=== PATIENT | male | born 1965 | race Caucasian/White ===

== ENCOUNTER → 2019-02-07 | Day surgery (SDC) | payer BC ==
[~2019-02-07] MED LIST: BONE PO; BROMELAIN PO; FENTANYL CITRATE/PF 100MCG/2 ML INJ ONE; FOLATE PO; FOLIC ACID PO; HYOSCYAMINE 0.125 MG TAB ONE; JOINT FORMULA PO; L-GLUTAMINE25 G1 PO; MAGNESIUM PO; MELATONIN PO; MIDAZOLAM HCL 2 MG/2 ML VIAL ONE; MULTIVITAMINS1 EACH PO; N ACETYL CYSTEINE PO; NIACIN PO; NIACINAMIDE PO; OMEGA 3 FISH O1 EACH PO; PROBIOTICS PO; PROPOFOL IV EMULSION 10 MG/ML 50 ML VIAL ONE; QUERCETIN PO; ROYAL JELLY PO; TRACE MINERALS PO; TURMERIC1 GM PO; VITAMIN B COMP1 EACH PO; VITAMIN C PO; VITAMIN D PO
[2019-02-07 14:45] VITALS: BP 85/63
--- NOTE | 2019-02-07 16:27 | Operative Report ---
DATE OF PROCEDURE: 02/07/2019 SURGEON: Eliceo Zhou MD PROCEDURE: EGD with biopsies. INDICATION FOR COLONOSCOPY: Surveillance colonoscopy, personal history of colon polyps. MEDICATIONS: The patient was done under MAC, please see anesthesiologist's note. PROCEDURE IN DETAIL: With the patient in left lateral decubitus position, a flexible fiberoptic Olympus colonoscope was inserted into the rectum with ease and advanced all the way to the cecum. Mucosa overlying the cecum appeared to be within normal limits. The ileocecal valve was intubated and the scope was advanced into the terminal ileum. Biopsies were obtained. The scope was then withdrawn back into the colon. It was then withdrawn slowly and mucosa overlying the ascending and the transverse appeared to be within normal limits. There was some patchy mild inflammatory changes noted in the left colon as well as the rectum and random biopsies were obtained. The scope was then retroflexed into the distal rectum and moderate-sized internal hemorrhoids were noted, none of which was actively bleeding. The scope was then straightened out, it was subsequently withdrawn, and the patient tolerated the procedure well. IMPRESSION: 1. Mild patchy left-sided colitis. 2. Proctitis, mild. 3. Internal hemorrhoids, none actively bleeding. PLAN: Follow up histology. Initiate VSL#3 one p.o. daily. The patient might benefit from a followup colonoscopy in 5 years. Eliceo Zhou MD [facility] /[id number] cc: Dr. Sacha Luna
== END | disposition home or self-care (01) ==
LOC: OR 10:15
PROVIDERS: ATTEND Internal Medicine Gastroenterology
DX: Z12.11 Encounter for screening for malignant neoplasm of colon (principal); Z86.010 Personal history of colon polyps; K51.50 Left sided colitis without complications; K62.89 Other specified diseases of anus and rectum; K64.8 Other hemorrhoids; Z01.810 Encounter for preprocedural cardiovascular examination
CPT/HCPCS: 43239; 93005; J2250; J2704; J3010; 45378; 45380